=== PATIENT | male | born 1985 | race Caucasian/White ===

== ENCOUNTER 2017-04-11 20:38 | Emergency (ER) | payer BC ==
[~2017-04-11] VITALS: Ht 175.3 cm; Wt 118.2 kg
[2017-04-11] MEDS ORDERED: TYLENOL 500MG500 MG PO (20:49)
[2017-04-11] MEDS ORDERED: ZESTRIL20 M1 PO (20:49)
[2017-04-11] MEDS ORDERED: AMOXICILLIN 50500 MG PO (21:15)
[2017-04-11] MEDS ORDERED: NORCO 325 MG-51 TAB PO (21:15)
[2017-04-11 21:35] VITALS: BP 160/89
== END 2017-04-11 21:35 | disposition home or self-care (01) ==
LOC: ED 20:38
DX: K08.89 Other specified disorders of teeth and supporting structures (principal); I10 Essential (primary) hypertension
CPT/HCPCS: J1885

== ENCOUNTER → 2017-08-23 | Outpatient (CLI) | payer BC ==
[~2017-08-23] VITALS: Ht 175.3 cm; Wt 118.2 kg
[~2017-08-23] MED LIST: AMOXICILLIN 50500 MG PO; NORCO 325 MG-51 TAB PO; TYLENOL 500MG500 MG PO; ZESTRIL20 M1 PO
[2017-08-23 10:17] VITALS: BP 132/82
== END ==
LOC: AMSURD 09:37
DX: R07.89 Other chest pain (principal)

== ENCOUNTER 2017-12-09 07:48 | Emergency (ER) | payer BC ==
[~2017-12-09] VITALS: Ht 175.3 cm; Wt 118.2 kg
[2017-12-09 08:18] LABS: EOS # 0.2 (0.04-0.40); EOS % 1.8 % (0.0-4.0); HEMATOCRIT 41.9 % (42.0-52.0); HEMOGLOBIN 14.2 g/dL (13.5-18.0); LYMPH# 2.3 (1.50-4.00); MEAN CELL VOLUME 85 fl (78-100); MEAN CORPUSCULAR HEMOGLOBIN 29 pg (27-31); MEAN CORPUSCULAR HGB CONC 34 g/dL (33-37); MEAN PLATELET VOLUME 10.1 fl (7.4-10.4); MONO # 0.7 (0.20-0.80); NEU # 4.9 (1.40-6.50); PLATELET COUNT 275 K/mm3 (130-400); RED BLOOD COUNT 4.94 M/mm3 (4.20-5.60); RED CELL DISTRIBUTION WIDTH 12.7 % (11.5-14.5); WHITE BLOOD COUNT 8.2 K/mm3 (4.8-10.8)
[2017-12-09 08:26] LABS: ALBUMIN 4.4 g/dL (3.5-5.0); BUN/CREATININE RATIO 28.9 (6.0-26.0); CALCIUM 8.7 mg/dL (8.4-10.2); POTASSIUM 3.9 mmol/L (3.6-5.0); TOTAL BILIRUBIN 0.4 mg/dL (0.2-1.3); TOTAL PROTEIN 7.9 g/dL (6.3-8.2)
[2017-12-09] MEDS ORDERED: PREDNISONE10 MG PO (10:00)
[2017-12-09] MEDS ORDERED: ZITHROMAX500 M2 PO (10:00)
[2017-12-09 10:11] VITALS: BP 116/78
== END 2017-12-09 10:07 | disposition home or self-care (01) ==
LOC: ED 07:48
PROVIDERS: Physician Assistant
DX: K12.2 Cellulitis and abscess of mouth (principal); K12.0 Recurrent oral aphthae; J02.9 Acute pharyngitis, unspecified; F17.220 Nicotine dependence, chewing tobacco, uncomplicated; I10 Essential (primary) hypertension
CPT/HCPCS: J1885; J2930

== ENCOUNTER → 2019-02-06 | Outpatient (CLI) | payer BC ==
[~2019-02-06] MED LIST changes: +PREDNISONE10 MG PO; +ZITHROMAX500 M2 PO
[2019-02-06 09:22] LABS: EOS # 0.1 (0.04-0.40); EOS % 1.4 % (0.0-4.0); HEMATOCRIT 43.7 % (42.0-52.0); HEMOGLOBIN 15.1 g/dL (13.5-18.0); LYMPH# 2.4 (1.50-4.00); MEAN CELL VOLUME 83 fl (78-100); MEAN CORPUSCULAR HEMOGLOBIN 29 pg (27-31); MEAN CORPUSCULAR HGB CONC 35 g/dL (33-37); MEAN PLATELET VOLUME 9.7 fl (7.4-10.4); MONO # 0.5 (0.20-0.80); NEU # 5.5 (1.40-6.50); PLATELET COUNT 317 K/mm3 (130-400); RED BLOOD COUNT 5.24 M/mm3 (4.20-5.60); RED CELL DISTRIBUTION WIDTH 12.4 % (11.5-14.5); WHITE BLOOD COUNT 8.5 K/mm3 (4.8-10.8)
[2019-02-06 09:31] LABS: POTASSIUM 4.2 mmol/L (3.5-5.1)
[2019-02-06 09:32] LABS: ALBUMIN 4.6 g/dL (3.5-5.0)
[2019-02-06 09:36] LABS: TOTAL BILIRUBIN 0.5 mg/dL (0.2-1.2)
== END ==
LOC: LAB 09:12
PROVIDERS: Family Medicine
DX: Z00.00 Encounter for general adult medical examination without abnormal findings (principal); E78.5 Hyperlipidemia, unspecified

== ENCOUNTER → 2019-05-16 | Outpatient (CLI) | payer BC ==
[~2019-05-16] MED LIST changes: +CEPHALEXIN500 M1 PO
== END ==
LOC: RAD 10:39
DX: M25.462 Effusion, left knee (principal)

== ENCOUNTER 2019-05-18 21:26 | Emergency (ER) | payer BC ==
[~2019-05-18] VITALS: Ht 175.3 cm; Wt 120.5 kg
[~2019-05-18 21:26] MED LIST changes: -CEPHALEXIN500 M1 PO
[2019-05-18 22:34] LABS: EOS # 0.1 (0.04-0.40); EOS % 0.8 % (0.0-4.0); HEMATOCRIT 41.1 % (42.0-52.0); LYMPH# 3.7 (1.50-4.00); MEAN CELL VOLUME 86 fl (78-100); MEAN CORPUSCULAR HEMOGLOBIN 29 pg (27-31); MEAN CORPUSCULAR HGB CONC 34 g/dL (33-37); MONO # 0.5 (0.20-0.80); NEU # 6.8 (1.40-6.50); PLATELET COUNT 332 K/mm3 (130-400); RED CELL DISTRIBUTION WIDTH 12.1 % (11.5-14.5); WHITE BLOOD COUNT 11.1 K/mm3 (4.8-10.8)
[2019-05-18 22:43] LABS: ALBUMIN 4.7 g/dL (3.5-5.0); POTASSIUM 3.7 mmol/L (3.5-5.1)
[2019-05-18] MEDS ORDERED: CEPHALEXIN500 M1 PO (22:44)
[2019-05-18 22:45] LABS: CALCIUM 10.1 mg/dL (8.3-10.5)
[2019-05-18 22:46] LABS: TOTAL PROTEIN 8.5 g/dL (6.4-8.3)
[2019-05-18 22:48] LABS: TOTAL BILIRUBIN 0.4 mg/dL (0.2-1.2)
[2019-05-18 23:37] LABS: ERYTHROCYTE SEDIMENTATION RATE 27 mm/hr (0-15)
[2019-05-19 01:31] VITALS: BP 131/70
== END 2019-05-19 01:31 | disposition home or self-care (01) ==
LOC: ED 21:26
PROVIDERS: Nurse Practitioner Family
DX: M70.42 Prepatellar bursitis, left knee (principal); L03.116 Cellulitis of left lower limb; K21.9 Gastro-esophageal reflux disease without esophagitis; F17.200 Nicotine dependence, unspecified, uncomplicated; Z87.442 Personal history of urinary calculi; Z88.1 Allergy status to other antibiotic agents; Z88.2 Allergy status to sulfonamides; W55.22XA Struck by cow, initial encounter; Y92.009 Unspecified place in unspecified non-institutional (private) residence as the place of occurrence of the external cause
CPT/HCPCS: J3370; J7050

== ENCOUNTER → 2020-04-16 | Outpatient (CLI) | payer BC ==
[~2020-04-16] MED LIST changes: +CEPHALEXIN500 M1 PO
== END ==
LOC: LAB 08:59
DX: R09.89 Other specified symptoms and signs involving the circulatory and respiratory systems (principal); R09.81 Nasal congestion; R19.7 Diarrhea, unspecified; R06.02 Shortness of breath; R05 Cough; Z20.828 Contact with and (suspected) exposure to other viral communicable diseases

== ENCOUNTER → 2020-07-10 | Outpatient (CLI) | payer BC ==
[2020-07-10 11:55] LABS: EOS # 0.1 (0.04-0.40); EOS % 1.3 % (0.0-4.0); HEMATOCRIT 42.7 % (42.0-52.0); HEMOGLOBIN 14.6 g/dL (13.5-18.0); LYMPH# 2.3 (1.50-4.00); MEAN CELL VOLUME 85 fl (78-100); MEAN CORPUSCULAR HEMOGLOBIN 29 pg (27-31); MEAN CORPUSCULAR HGB CONC 34 g/dL (33-37); MEAN PLATELET VOLUME 9.9 fl (7.4-10.4); MONO # 0.5 (0.20-0.80); NEU # 5.3 (1.40-6.50); PLATELET COUNT 327 K/mm3 (130-400); RED BLOOD COUNT 5.03 M/mm3 (4.20-5.60); RED CELL DISTRIBUTION WIDTH 12.4 % (11.5-14.5); WHITE BLOOD COUNT 8.3 K/mm3 (4.8-10.8)
[2020-07-10 11:58] LABS: ALBUMIN 4.6 g/dL (3.5-5.0); POTASSIUM 4.6 mmol/L (3.5-5.1)
[2020-07-10 11:59] LABS: CALCIUM 9.6 mg/dL (8.3-10.5)
[2020-07-10 12:01] LABS: TOTAL PROTEIN 7.9 g/dL (6.4-8.3)
[2020-07-10 12:02] LABS: TOTAL BILIRUBIN 0.3 mg/dL (0.2-1.2)
== END ==
LOC: LAB 11:24
PROVIDERS: Family Medicine
DX: Z00.00 Encounter for general adult medical examination without abnormal findings (principal); E78.5 Hyperlipidemia, unspecified

== ENCOUNTER → 2020-07-18 | Outpatient (CLI) | payer BC | LOC: MAMMO 12:15 | DX: N63.21 Unspecified lump in the left breast, upper outer quadrant (principal) ==

== ENCOUNTER 2020-09-16 18:38 | Emergency (ER) | payer BC ==
[2020-09-16] MEDS ORDERED: CEPHALEXIN500 M1 PO (20:23)
[2020-09-16 20:33] VITALS: BP 135/98
== END 2020-09-16 20:33 | disposition home or self-care (01) ==
LOC: ED 18:38
DX: S61.213A Laceration without foreign body of left middle finger without damage to nail, initial encounter (principal); I10 Essential (primary) hypertension; Z23 Encounter for immunization; Z88.2 Allergy status to sulfonamides; W26.0XXA Contact with knife, initial encounter
CPT/HCPCS: 90715

== ENCOUNTER → 2021-09-30 | Outpatient (CLI) | payer BC ==
[2021-09-30 17:17] LABS: BASO # 0.02 K/mm3 (0.02-0.10); EOS # 0.12 K/mm3 (0.04-0.40); EOS % 1.2 % (0.0-4.0); HEMATOCRIT 42.6 % (42.0-52.0); HEMOGLOBIN 14.5 g/dL (13.5-18.0); LYMPH# 3.02 K/mm3 (1.50-4.00); MEAN CELL VOLUME 85 fl (78-100); MEAN CORPUSCULAR HEMOGLOBIN 29 pg (27-31); MEAN CORPUSCULAR HGB CONC 34 g/dL (33-37); MEAN PLATELET VOLUME 9.7 fl (7.4-10.4); MONO # 0.63 K/mm3 (0.20-0.80); NEU # 6.03 K/mm3 (1.40-6.50); PLATELET COUNT 316 K/mm3 (130-400); RED CELL DISTRIBUTION WIDTH 11.7 % (11.5-14.5); WHITE BLOOD COUNT 9.8 K/mm3 (4.8-10.8)
[2021-09-30 17:22] LABS: ALBUMIN 4.6 g/dL (3.5-5.0); POTASSIUM 4.3 mmol/L (3.5-5.1)
[2021-09-30 17:23] LABS: CALCIUM 9.6 mg/dL (8.3-10.5)
[2021-09-30 17:24] LABS: TOTAL PROTEIN 7.8 g/dL (6.4-8.3)
[2021-09-30 17:26] LABS: TOTAL BILIRUBIN 0.5 mg/dL (0.2-1.2)
== END ==
LOC: LAB 16:55
PROVIDERS: Family Medicine
DX: Z00.00 Encounter for general adult medical examination without abnormal findings (principal); E78.5 Hyperlipidemia, unspecified; I10 Essential (primary) hypertension; E66.9 Obesity, unspecified

== ENCOUNTER → 2022-04-06 | Outpatient (CLI) | payer BC ==
[2022-04-06 13:23] LABS: HEMATOCRIT 41.4 % (42.0-52.0); HEMOGLOBIN 14.2 g/dL (13.5-18.0); MEAN PLATELET VOLUME 9.5 fl (7.4-10.4); RED BLOOD COUNT 4.84 M/mm3 (4.20-5.60); RED CELL DISTRIBUTION WIDTH 11.9 % (11.5-14.5); WHITE BLOOD COUNT 10.5 K/mm3 (4.8-10.8)
[2022-04-06 13:34] LABS: ALBUMIN 4.6 g/dL (3.5-5.0); POTASSIUM 4.2 mmol/L (3.5-5.1); SODIUM 139 mmol/L (136-145)
[2022-04-06 13:35] LABS: CALCIUM 9.5 mg/dL (8.3-10.5)
[2022-04-06 13:36] LABS: GLUCOSE 85 mg/dL (75-110); TOTAL PROTEIN 7.8 g/dL (6.4-8.3)
[2022-04-06 13:37] LABS: CARBON DIOXIDE 22 mmol/L (22-29)
[2022-04-06 13:38] LABS: TOTAL BILIRUBIN 0.5 mg/dL (0.2-1.2)
[2022-04-06 13:42] LABS: AST-SGOT 21 U/L (5-34)
[2022-04-06 13:43] LABS: ALT/SGPT 37 U/L (0-55)
[2022-04-06 13:50] LABS: TROPONIN-I < 0.030 ng/mL (<0.030)
[2022-04-06 14:07] LABS: D-DIMER 0.48 mg/L FEU (0.15-0.50)
== END ==
LOC: AMSURD 12:59
PROVIDERS: Nurse Practitioner
DX: R07.89 Other chest pain (principal)

== ENCOUNTER → 2022-04-10 | Outpatient (CLI) | payer BC | LOC: CARDREHAB 11:00 | DX: I44.7 Left bundle-branch block, unspecified (principal) | CPT/HCPCS: A9500 ==